=== PATIENT | male | born 1975 | race Caucasian/White ===

== ENCOUNTER 2022-12-19 06:33 | Outpatient (CLI) | payer BC, SELFPAY ==
--- NOTE | 2022-12-19 08:11 | W.ANESCHARGE ---
Anesthesia Charges Start Date/Time Anesthesia Start Date: 12/19/22 Anesthesia Start Time: 07:22 Stop Date/Time Anesthesia Stop Date: 12/19/22 Anesthesia Stop Time: 08:08
--- NOTE | 2022-12-19 09:41 | W.ANESCHARGE ---
Anesthesia Charges Start Date/Time Anesthesia Start Date: 12/19/22 Anesthesia Start Time: 07:22 Stop Date/Time Anesthesia Stop Date: 12/19/22 Anesthesia Stop Time: 08:08
== END 2022-12-19 06:34 | disposition home or self-care (01) ==
LOC: OP CLINIC 06:35
PROVIDERS: PCP Family Medicine; Visit Provider Internal Medicine Gastroenterology
DX: K52.9 Noninfective gastroenteritis and colitis, unspecified (principal); K51.90 Ulcerative colitis, unspecified, without complications; K44.9 Diaphragmatic hernia without obstruction or gangrene; K31.89 Other diseases of stomach and duodenum; R19.7 Diarrhea, unspecified; R10.33 Periumbilical pain; Z87.19 Personal history of other diseases of the digestive system
CPT/HCPCS: 00813; 43239; 45380; 88305; 88342; J2704